=== PATIENT | male | born 1950 | race Caucasian/White ===

== ENCOUNTER 2019-09-17 11:35 | Emergency (ER) | payer MEDICARE, OTHER ==
[~2019-09-17] VITALS: Ht 170.2 cm; Wt 95.2 kg
[2019-09-17 12:34] LABS: BASOPHILS ABSOLUTE AUTO 0.06 K/mm3 (0.00-0.23); BASOPHILS PERCENT AUTO 1 % (0-2); EOSINOPHILS ABSOLUTE AUTO 0.12 K/mm3 (0.00-0.68); EOSINOPHILS PERCENT AUTO 2 % (0-6); Hematocrit 46.6 % (37.0-53.0); Hemoglobin 15.5 g/dL (13.5-17.5); IMMATURE GRAN ABSOLUTE AUTO 0.03 K/mm3 (0.00-0.10); IMMATURE GRAN PERCENT AUTO 0 % (0-1); LYMPHOCYTES ABSOLUTE AUTO 2.09 K/mm3 (0.84-5.20); LYMPHOCYTES PERCENT AUTO 26 % (21-46); MONOCYTES ABSOLUTE AUTO 1.09 K/mm3 (0.16-1.47); MONOCYTES PERCENT AUTO 14 % (4-13); Mean Corpuscular HGB 29.6 pg (26.0-34.0); Mean Corpuscular HGB Conc 33.3 g/dL (31.5-36.5); Mean Corpuscular Volume 89 fL (80-100); Mean Platelet Volume 9.1 fL (9.1-12.4); NEUTROPHILS ABSOLUTE AUTO 4.54 K/mm3 (1.96-9.15); NEUTROPHILS PERCENT AUTO 57 % (41-73); Platelet Count 251 K/mm3 (150-400); RDW Coefficient Variation 11.9 % (11.7-14.2); RDW Standard Deviation 38.3 fL (35.1-46.3); Red Blood Cell Count 5.24 M/mm3 (4.30-5.90); White Blood Cell Count 7.93 K/mm3 (4.00-11.30)
[2019-09-17 12:56] LABS: Alanine Aminotransfer (ALT/SGP 25 U/L (12-78); Albumin/Globulin Ratio 0.9 (0.8-1.8); Alk Phos 117 U/L (50-136); Anion Gap 8 mmol/L (6-16); Aspartate Aminotrans (AST/SGOT 21 U/L (12-37); Bilirubin, Total 0.6 mg/dL (0.1-1.0); Blood Urea Nitrogen 22 mg/dL (8-24); Bun/Creatinine Ratio 26.8 (12.0-20.0); CO2, Blood 28 mmol/L (21-32); Calcium, Blood 9.1 mg/dL (8.5-10.1); Chloride, Blood 101 mmol/L (98-108); Creatinine, Blood 0.82 mg/dL (0.60-1.20); Globulin, Blood 4.5 g/dL (2.2-4.0); Glomerular Filtration Rate >60 (60-); Glucose, Blood 189 mg/dL (70-99); Sodium, Blood 137 mmol/L (136-145); Total Protein, Blood 8.5 g/dL (6.4-8.2); Troponin I <0.015 ng/mL (0.000-0.040)
[2019-09-17] MEDS ORDERED: ALBU90OI INH (14:34)
[2019-09-17] MEDS ORDERED: Prednisone20 MG PO (14:34)
== END 2019-09-17 14:55 | disposition home or self-care (01) ==
LOC: ER 11:35
PROVIDERS: Physician Assistant
DX: J44.1 Chronic obstructive pulmonary disease with (acute) exacerbation (principal); E11.9 Type 2 diabetes mellitus without complications
CPT/HCPCS: 71045; 80053; 84484; 85025; 93005; 93010; 94640; 94644; 96374; 99285-25; J2930

== ENCOUNTER 2019-10-22 13:04 | Inpatient (IN) | payer MEDICARE, OTHER ==
[~2019-10-22] VITALS: Ht 170.2 cm; Wt 96.4 kg
[~2019-10-22 13:04] MED LIST: ALBU90OI INH; Prednisone20 MG PO
[2019-10-22 14:47] LABS: BASOPHILS ABSOLUTE AUTO 0.03 K/mm3 (0.00-0.23); BASOPHILS PERCENT AUTO 0 % (0-2); EOSINOPHILS ABSOLUTE AUTO 0.13 K/mm3 (0.00-0.68); EOSINOPHILS PERCENT AUTO 2 % (0-6); Hematocrit 45.4 % (37.0-53.0); Hemoglobin 14.7 g/dL (13.5-17.5); IMMATURE GRAN ABSOLUTE AUTO 0.02 K/mm3 (0.00-0.10); IMMATURE GRAN PERCENT AUTO 0 % (0-1); LYMPHOCYTES ABSOLUTE AUTO 1.85 K/mm3 (0.84-5.20); LYMPHOCYTES PERCENT AUTO 25 % (21-46); MONOCYTES ABSOLUTE AUTO 0.85 K/mm3 (0.16-1.47); MONOCYTES PERCENT AUTO 12 % (4-13); Mean Corpuscular HGB 29.8 pg (26.0-34.0); Mean Corpuscular HGB Conc 32.4 g/dL (31.5-36.5); Mean Corpuscular Volume 92 fL (80-100); Mean Platelet Volume 8.9 fL (9.1-12.4); NEUTROPHILS PERCENT AUTO 61 % (41-73); Platelet Count 273 K/mm3 (150-400); RDW Coefficient Variation 12.1 % (11.7-14.2); RDW Standard Deviation 40.6 fL (35.1-46.3); Red Blood Cell Count 4.94 M/mm3 (4.30-5.90); White Blood Cell Count 7.38 K/mm3 (4.00-11.30)
[2019-10-22] MEDS ORDERED: INSULANPEN SC (14:50)
[2019-10-22 15:02] LABS: International Normalized Ratio 0.96; Prothrombin Time Results 10.2 Sec (9.7-11.5)
[2019-10-22 15:07] LABS: Alanine Aminotransfer (ALT/SGP 23 U/L (12-78); Albumin, Blood 3.5 g/dL (3.4-5.0); Albumin/Globulin Ratio 0.8 (0.8-1.8); Alk Phos 98 U/L (50-136); Anion Gap 2 mmol/L (6-16); Aspartate Aminotrans (AST/SGOT 15 U/L (12-37); Bilirubin, Total 0.4 mg/dL (0.1-1.0); Blood Urea Nitrogen 16 mg/dL (8-24); Bun/Creatinine Ratio 19.2 (12.0-20.0); CO2, Blood 33 mmol/L (21-32); Calcium, Blood 8.8 mg/dL (8.5-10.1); Chloride, Blood 102 mmol/L (98-108); Creatinine, Blood 0.83 mg/dL (0.60-1.20); Globulin, Blood 4.3 g/dL (2.2-4.0); Glomerular Filtration Rate >60 (60-); Glucose, Blood 308 mg/dL (70-99); Potassium, Blood 3.9 mmol/L (3.5-5.5); Sodium, Blood 137 mmol/L (136-145); Total Protein, Blood 7.8 g/dL (6.4-8.2)
[2019-10-22] MEDS ORDERED: BIKTARVY 50-201 EACH PO (15:11)
[2019-10-22] MEDS ORDERED: FLUT1DIS2 INH (15:11)
[2019-10-22] MEDS ORDERED: ATORVASTATIN CA20 MG PO (15:12)
[2019-10-22] MEDS ORDERED: PLAVIX75 MG PO (15:12)
[2019-10-22] MEDS ORDERED: Ventolin/Prove6.7 GM INH (15:13)
[2019-10-22] MEDS ORDERED: INSULIN ASPART PROTAMINE SC (15:15)
[2019-10-22] MEDS ORDERED: INSULIN ASPART SC (15:15)
[2019-10-22 15:42] LABS: Source, Urine Voided
[2019-10-22 15:45] LABS: Appearance, Urine Clear (Clear); Bilirubin, Urine Neg (Neg); Blood, Urine Neg (Neg); Color, Urine Yellow (P-Yellow); Glucose Qualitative, Urine 4+ (Neg); Ketones, Urine Neg (Neg); Leukocyte Esterase, Urine Neg (Neg); Nitrite, Urine Neg (Neg); Protein, Urine Neg (Neg); Specific Gravity, Urine 1.015 (1.003-1.022); Urobilinogen, Urine NORM (Normal)
[2019-10-22 17:34] LABS: CHOL/HDL RATIO 4.2; Cholesterol 161 mg/dL (50-200); HDL Cholesterol 38 mg/dL (>39); LDL/HDL RATIO 2.2; Low Density Lipoprotein Chol 84 mg/dL (0-110); Triglycerides 193 mg/dL (30-160); Very Low Density Lipoprot Chol 38 mg/dL (6-32)
--- NOTE | 2019-10-23 00:31 | NUR ---
10/22/191944 PT SITTING ON SIDE OF BED AND REFUSED TO LAY DOWN PER RN REQUEST. PT HAS LEFT SIDE DEFICIT AND INSTRUCTED THAT STAFF WANT HIM TO BE SAFE WHEN WE ARE NOT IN ROOM. STILL REFUSED TO LAY DOWN. COAT EXAMINERPAGE INFORMED AND SPOKE WITH PT ABOUT STAFF CONCERNS. HE EVENTUALLY DID LAY DOWN WITH HEAD ELEVATED. BED ALARM ON. SEE ADMISSION FORMS. COAT EXAMINER WILL ATTEMPT NEW IV IF PT WILL ALLOW.
--- NOTE | 2019-10-23 00:38 | NUR ---
10/22/19 1138 HVAC TECHNICIAN RESIDENTIALPAGE ATTEMPTED IV INSERTION WITH ULTRASOUND BUT WAS UNABLE AFTER SEVERAL ATTEMPTS. PT REFUSED ANY FURTHER ATTEMPTS FOR NOW. STAFF WILL TRY AGAIN IN AM.
--- NOTE | 2019-10-23 00:41 | NUR ---
10/22/19 2300 PT MORE COOPERATIVE WITH MEDS AND CARE. CONFUSED WHEN FIRST AWAKENED FOR RESP. CARE AND TX. CONT. PULSE OXIMETER APPLIED. DENIES ANY PAIN OR DISTRESS AT THIS TIME. LEFT SIDE DEFICIT PRESENT ON ADMISSION. SHAW AT SIZE 4. TAKING JUICE AND WATCHING TV. BED AL;ARM ON AND REMINDED PT TO CALL STAFF FOR NEEDS INCLUDING GETTING UP. HE STATES HE WILL CALL.
--- NOTE | 2019-10-23 05:11 | NUR ---
10/23/19 9029 PAGED PALLIATIVE CARE ABOUT CONSULT VIA [facility] PAGER.
--- NOTE | 2019-10-23 06:42 | NUR ---
10/23/19 0600 PT SLEEPING AND HAD REFUSED LAB DRAWS EARLIER. HE AGREED TO HAVE THEM DONE AFTER 6 AM. VITALS STABLE. SLEEPING WELL THE LATER HALF OF FERMENTATION ENGINEER.
--- NOTE | 2019-10-23 12:00 | NUR ---
ASSUMED CARE OF PATIENT FROM Elgin BRUNER AFTER I FINISHED WORKPLACE VIOLENCE CLASS. PT. UP IN CHAIR LUNCH TRAY IN FRONT OF PT. PT. REQUESTING BACK TO BED. WENT TO GET SOMEONE TO ASSIST ME AND WHEN I RETURNED TO ROOM HE HAD TRANSFERRED HIMSELF TO EDGE OF BED. INSTRUCTED PT. NOT TO GET UP WITHOUT HELP WE DIDN'T WANT HIM TO FALL. PY. SAID HE WOULD CALL.
--- NOTE | 2019-10-23 14:36 | NUR ---
Echocardiogram completed.
--- NOTE | 2019-10-23 18:35 | NUR ---
PT. LYING QUIETLY AFTER HAVING DINNER. PT. CAREGIVERS FINALLY BROUGHT IN HIS HOME MED AND THEY WERE GIVEN THIS EVENING. PT. DOES NOT HAVE AN IV HE REFUSED THEM. SS ARE TALKING SNF BUT OF THIS TIME HE IS REFUSING TO GO THERE. WANTS TO RETURN BACK TO WHERE HE WAS STAYING AT [facility]. NO NOTEABLE CHANGES THIS SHIFT.
--- NOTE | 2019-10-24 07:25 | NUR ---
SHIFT SUMMARY PT IS A 69 Y/O MALE, ADMITTED FOR AN ACUTE CVA. HE IS A&O X 4, AND A 1PA UP. PT IS VERY UNCOOPERATIVE WITH CARE AT TIMES. HE REFUSED VITALS AND CHEMBG CHECK AT THE START OF SHIFT, AND TRIED TO LEAVE AMA. AFTER SPEAKING WITH THE HOSPITALIST JAKE BURGOS AND CHARGE NURSE, PT AGREED TO STAY THE NIGHT. HE ALSO AGREED TO VITALS AND MEDICATIONS, AND SLEPT WELL THROUGH THE NIGHT AFTER RECEIVING BEDTIME MEDS. NO COMPLAINTS OF ACUTE PAIN, NAUSEA OR SOB. VITAL SIGNS STABLE. NO ACUTE CHANGES IN PT CONDITION NOTED. REPORT GIVEN TO ONCOMING RN.
--- NOTE | 2019-10-24 17:24 | NUR ---
SHIFT SUMMARY- PT A/O, COOOPERATIVE. PT STILL HAVING LEFT SIDED WEAKNESS. PT WANTED TO LEAVE AMA DRUING THIS SHIFT, WAS ABLE TO CONVINCE THE PT TO STAY BUT HE WANTED TO GO OUT TO SMOKE. PROVIDED A WHEEL CHAIR FOR HIM TO GO OUTSIDE. AWAITING PLACMENT.
--- NOTE | 2019-10-24 17:25 | NUR ---
Spiritual Care inital note: Mr. Rivera is non-sikh, but he did appear to enjoy companionship and conversation. He tells me he feels he is well enough to leave the hospital. He disagress with SNF recommendation. He is homeless and perfers "being outside." "I am uncomfortable indoors." He speech is somewhat slurred. He denies concerns or worry and states he is not in pain. Mr. Rivera is pleasant and smiles easily. I encouraged him to allow staff to help him get stronger. I will remain available.
--- NOTE | 2019-10-25 07:18 | NUR ---
SHIFT SUMMARY PT IS A 69 Y/O MALE, ADMITTED FOR AN ACUTE CVA. HE IS A&O X 4, AND A 1PA IN THE ROOM. PT HAS RESIDUAL L SIDE WEAKNESS R/T HIS CVA. NO COMPLAINTS OF PAIN, NAUSEA OR SOB. VITAL SIGNS STABLE. PT SLEPT WELL THROUGH THE NIGHT. NO OTHER ACUTE CHANGES IN PT CONDITION NOTED DURING THE NIGHT. REPORT GIVEN TO ONCOMING RN.
[2019-10-25] MEDS ORDERED: CEPH500 PO (14:59)
[2019-10-25] MEDS ORDERED: NOVOLOG FL100 UNIT/1 SC (14:59)
--- NOTE | 2019-10-25 15:08 | NUR ---
DISCHARGE INSTRUCTIONS GIVEN TO PATIENT. ALL QUESTIONS ANSWERED. INSULIN AND SYRINGES RETURNED TO THE PATIENT. AWAITING FOR TRANSPORT AT THIS TIME.
--- NOTE | 2019-10-25 16:01 | NUR ---
PATIENT BECAME VERY IMPATIENT AND DECIDED THAT HE WAS NOT WAITING FOR TRANSPORTATION ANY LONGER. HE GRABBED HIS LUGGAGE AND BEGAN WALKING VERY UNSTEADILY DOWN THE CONNOR TO LEAVE. STAFF MEMBERS STOPPED HIM AND REQUESTED THAT HE BE TRANSFERED OUT OF THE FACILITY IN A WHEELCHAIR. THE PATIENT DID GET INTO THE WHEELCHAIR, HOWEVER, EVEN THOUGH HE WAS TOLD HE CAN KEEP THE WHEELCHAIR HE STATED HE WOULD NOT TAKE IT BECAUSE IT IS "TOO MUCH LUGGAGE". THE PATIENT LEFT AT 1559.
== END 2019-10-25 15:58 | disposition home or self-care (01) | DRG 65 ==
LOC: ER 13:04 → MEDS 16:44
PROVIDERS: Emergency Medicine; ADMIT Internal Medicine
DX: I63.9 Cerebral infarction, unspecified (principal); L03.115 Cellulitis of right lower limb; G81.94 Hemiplegia, unspecified affecting left nondominant side; J44.9 Chronic obstructive pulmonary disease, unspecified; E11.9 Type 2 diabetes mellitus without complications; Z21 Asymptomatic human immunodeficiency virus [HIV] infection status; R47.81 Slurred speech; F17.210 Nicotine dependence, cigarettes, uncomplicated; Z66 Do not resuscitate; Z79.4 Long term (current) use of insulin; Z79.02 Long term (current) use of antithrombotics/antiplatelets
CPT/HCPCS: 36415; 70450; 71045; 76882; 80053; 80061; 81003; 82947; 84443; 85025; 85610; 85730; 92526; 92610; 93005; 93010; 93306; 93880; 94640; 94760; 94762; 97110; 97112; 97162; 97166; 97530; 97535; 99285-25; A9270-GY; J1650

== ENCOUNTER 2022-11-24 12:23 | Emergency (ER) | payer MEDICARE, OTHER ==
[~2022-11-24] VITALS: Ht 170.2 cm; Wt 95.2 kg
[~2022-11-24 12:23] MED LIST changes: +ATORVASTATIN CA20 MG PO; +BIKTARVY 50-201 EACH PO; +CEPH500 PO; +FLUT1DIS2 INH; +INSULANPEN SC; +INSULIN ASPART PROTAMINE SC; +INSULIN ASPART SC; +NOVOLOG FL100 UNIT/1 SC; +PLAVIX75 MG PO; +Ventolin/Prove6.7 GM INH
[2022-11-24 13:36] LABS: Influenza A, PCR NEGATIVE (NEGATIVE); Influenza B, PCR NEGATIVE (NEGATIVE); Resp Syncytial Virus, PCR NEGATIVE (NEGATIVE); SARS-Cov-2 (COVID-19) PCR, MMC NEGATIVE (NEGATIVE)
[2022-11-24] MEDS ORDERED: PRED20 PO (14:21)
== END 2022-11-24 14:21 | disposition home or self-care (01) ==
LOC: ER 12:23
PROVIDERS: Physician Assistant
DX: J20.9 Acute bronchitis, unspecified (principal); J44.0 Chronic obstructive pulmonary disease with (acute) lower respiratory infection; E11.9 Type 2 diabetes mellitus without complications; B20 Human immunodeficiency virus [HIV] disease; Z79.4 Long term (current) use of insulin; Z20.822 Contact with and (suspected) exposure to COVID-19; Z88.8 Allergy status to other drugs, medicaments and biological substances; Z79.899 Other long term (current) drug therapy
CPT/HCPCS: 0241U; 71046

== ENCOUNTER 2022-12-09 08:59 | Inpatient (IN) | payer MEDICARE, OTHER ==
[~2022-12-09] VITALS: Ht 170.2 cm; Wt 90.0 kg
[~2022-12-09 08:59] MED LIST changes: +PRED20 PO
[2022-12-09 10:04] LABS: BASOPHILS ABSOLUTE AUTO 0.06 K/mm3 (0.00-0.23); BASOPHILS PERCENT AUTO 0 % (0-2); EOSINOPHILS ABSOLUTE AUTO 0.11 K/mm3 (0.00-0.68); EOSINOPHILS PERCENT AUTO 1 % (0-6); Hemoglobin 15.8 g/dL (13.5-17.5); IMMATURE GRAN ABSOLUTE AUTO 0.04 K/mm3 (0.00-0.10); IMMATURE GRAN PERCENT AUTO 0 % (0-1); LYMPHOCYTES ABSOLUTE AUTO 2.72 K/mm3 (0.84-5.20); LYMPHOCYTES PERCENT AUTO 19 % (21-46); MONOCYTES PERCENT AUTO 9 % (4-13); Mean Corpuscular HGB 29.4 pg (26.0-34.0); Mean Corpuscular HGB Conc 33.6 g/dL (31.5-36.5); Mean Corpuscular Volume 87 fL (80-100); Mean Platelet Volume 9.4 fL (9.1-12.4); NEUTROPHILS ABSOLUTE AUTO 10.08 K/mm3 (1.96-9.15); NEUTROPHILS PERCENT AUTO 70 % (41-73); Platelet Count 268 K/mm3 (150-400); RDW Coefficient Variation 12.1 % (11.7-14.2); RDW Standard Deviation 38.5 fL (35.1-46.3); Red Blood Cell Count 5.38 M/mm3 (4.30-5.90); White Blood Cell Count 14.31 K/mm3 (4.00-11.30)
[2022-12-09 10:20] LABS: Albumin, Blood 3.4 g/dL (3.4-5.0); Albumin/Globulin Ratio 0.8 (0.8-1.8); Bilirubin, Total 0.8 mg/dL (0.1-1.0); Bun/Creatinine Ratio 23.1 (12.0-20.0); Calcium, Blood 9.1 mg/dL (8.5-10.1); Creatinine, Blood 0.69 mg/dL (0.60-1.20); Globulin, Blood 4.2 g/dL (2.2-4.0); Potassium, Blood 3.9 mmol/L (3.5-5.5); Total Protein, Blood 7.6 g/dL (6.4-8.2)
[2022-12-09 11:08] LABS: Influenza A, PCR NEGATIVE (NEGATIVE); Influenza B, PCR NEGATIVE (NEGATIVE); Resp Syncytial Virus, PCR NEGATIVE (NEGATIVE); SARS-Cov-2 (COVID-19) PCR, MMC NEGATIVE (NEGATIVE)
[2022-12-09] MEDS ORDERED: Biktarvy 50-200-25 M PO (14:05)
--- NOTE | 2022-12-09 16:42 | NUR ---
ADMIT/SHIFT SUMMARY PATIENT ADMITTED FROM ER AT 1600. PATIENT SETTLED INTO ROOM. PATIENT ORIENTED TO CALL LIGHT USE AND TV CONTROL. PATIENT STATED TO THIS RN AND POWERHOUSE HELPER THAT HE WOULD NOT USE THE CALL LIGHT. PATIENT GIVEN EXTENSIVE EDUCATION ON NEED FOR CALL LIGHT USE. PATIENT STATED UNDERSTANDING. ALARMS ON FOR SAFETY. PATIENT DENIES PAIN, NAUSEA, AND SHORTNESS OF BREATH. PATIENT IS A 1P WITH FWW, WHEN PATIENT WILL USE. PATIENT IS VERY UNSTEADY ON HIS FEET. PATIENT IS A&O X4, BUT SLOW TO RESPOND AND HAS SOME SLURRED SPEECH. PATIENT HAS HX OF CVA AND STATES HIS SPEECH IS NORMAL. PATIENT HAS HACKING COUGH THAT PRODUCES THICK SPUTUM. PATIENT SATURATING WELL ON ROOM AIR. PATIENT IS EATING AND DRINKING WELL. PATIENT IS PLEASANT AND COOPERATIVE WITH CARE.
[2022-12-09 18:03] LABS: Adenovirus Not Detected (NOT DETECT); Bordetella pertussis Not Detected (NOT DETECT); Chlamydophila pneumoniae Not Detected (NOT DETECT); Coronavirus 229E Not Detected (NOT DETECT); Coronavirus HKU1 Not Detected (NOT DETECT); Coronavirus NL63 Not Detected (NOT DETECT); Coronavirus OC43 Not Detected (NOT DETECT); Human Metapneumovirus Not Detected (NOT DETECT); Human Rhinovirus/Enterovirus Detected (NOT DETECT); Influenza A/2009-H1 Not Detected (NOT DETECT); Influenza A/H1 Not Detected (NOT DETECT); Influenza A/H3 Not Detected (NOT DETECT); Influenza B Not Detected (NOT DETECT); Mycoplasma pneumoniae Not Detected (NOT DETECT); Parainfluenza Virus 1 Not Detected (NOT DETECT); Parainfluenza Virus 2 Not Detected (NOT DETECT); Parainfluenza Virus 3 Not Detected (NOT DETECT); Parainfluenza Virus 4 Not Detected (NOT DETECT); Respiratory Syncytial Virus Not Detected (NOT DETECT); SARS-Cov-2 (COVID-19), BioFire Not Detected (NOT DETECT)
--- NOTE | 2022-12-09 18:37 | NUR ---
UPDATE PER PATIENT WOOD DIE MAKER, THEY ARE PAYING FOR PATIENT TO STAY IN [place] UNTIL WEDNESDAY 12/13, THEY ARE TRYING TO GET IT EXTENDED UNTIL THEY CAN FIND HOUSING FOR PATIENT. THEY STATED THEY ARE WORKING WITH [facility]. THEY ALSO STATED PATIENTS INSURANCE HAS BEEN SWITCHED TO [facility], EFFECTIVE 12/14/22. OUTREACH CONTACT IS RUBIN, .
[2022-12-09 21:56] LABS: Glucose, Blood 705 mg/dL (70-99)
--- NOTE | 2022-12-10 00:45 | NUR ---
PT GLUCOSE >500 AT 2100 CHECK, PROVIDER CALLED ORDERS PLACED, RECHECK AT 2300 GLUCOSE 487, PROVIDER NOTIFIED AND ORDERS PLACED WILL CONTINUE TO MONITOR
[2022-12-10 06:01] LABS: Hematocrit 42.6 % (37.0-53.0); Hemoglobin 14.5 g/dL (13.5-17.5); Mean Corpuscular HGB 29.3 pg (26.0-34.0); Mean Corpuscular Volume 86 fL (80-100); Platelet Count 260 K/mm3 (150-400); RDW Coefficient Variation 11.9 % (11.7-14.2); RDW Standard Deviation 37.5 fL (35.1-46.3); Red Blood Cell Count 4.95 M/mm3 (4.30-5.90); White Blood Cell Count 13.78 K/mm3 (4.00-11.30)
[2022-12-10 06:22] LABS: Bun/Creatinine Ratio 33.6 (12.0-20.0); Calcium, Blood 9.1 mg/dL (8.5-10.1); Creatinine, Blood 0.65 mg/dL (0.60-1.20); Potassium, Blood 3.7 mmol/L (3.5-5.5)
[2022-12-10 15:34] LABS: % CD 4 POS. LYMPH. 12.3 % (30.8-58.5); ABSOLUTE CD 4 HELPER 62 /uL (359-1519); BASOS 0 % (Not Estab.); EOS 0 % (Not Estab.); HEMOGLOBIN 14.9 g/dL (13.0-17.7); IMMATURE GRANULOCYTES 0 % (Not Estab.); LYMPHS 3 % (Not Estab.); LYMPHS (ABSOLUTE) 0.5 x10E3/uL (0.7-3.1); MCH 29.7 pg (26.6-33.0); MCHC 33.1 g/dL (31.5-35.7); MCV 90 fL (79-97); MONOCYTES 2 % (Not Estab.); MONOCYTES(ABSOLUTE) 0.2 x10E3/uL (0.1-0.9); NEUTROPHILS 95 % (Not Estab.); NEUTROPHILS (ABSOLUTE) 12.7 x10E3/uL (1.4-7.0); PLATELETS 257 x10E3/uL (150-450); RBC 5.02 x10E6/uL (4.14-5.80); RDW 12.1 % (11.6-15.4); WBC 13.4 x10E3/uL (3.4-10.8)
--- NOTE | 2022-12-10 17:03 | NUR ---
PATIENT A/OX4, UP WITH FWW AND 1 ASSIST. FALL PRECAUTIONS IN PLACE. PATIENT OVERESTIMATES ABILITY AT TIMES. TOLERATING ADA DIET. ACHS BLOOD SUGARS, COVERAGE PER HIGH SLIDING SCALE. SKIN INTACT. LUNGS WITH WHEEZES THROUGHOUT. VSS, ON RA. WANTING COCKTAIL SERVER PLACEMENT AT DISCHARGE. NO NEW CONCERNS THIS SHIFT.
--- NOTE | 2022-12-11 05:26 | NUR ---
PT IS A&04, SB ASSIST, VSS, COUGHING UP THICK GREEN SPUTUM, RA, NO COMPLAINTS OF PAIN OR ACUTE OVERNIGHT EVENTS CONTINUE POC
--- NOTE | 2022-12-11 18:00 | NUR ---
PATIENT A/OX4, UP WITH FWW, GB AND 2 ASSIST. GAIT VERY UNSTEADY AND UNCOORDINATED. HEAD CT ORDERED FOR AM DUE TO WEAKNESS AND RECENT CHANGE IN GAIT. VSS, ON RA. LUNGS WITH WHEEZES THROUGHOUT, COUGHING UP MODERATE AMOUNT OF THICK YELLOW SPUTUM. ACHS BLOOD SUGARS, SEMGLEE INCREASED TODAY. USING CALL LIGHT APPROPRIATELY FOR ASSISTANCE. DESIRE FROM [facility] IN TO VISIT PATIENT AND STATED THAT AT BASELINE PATIENT IS AMBULATORY AND WALKS LONG DISTANCES THROUGHOUT TOWN AND HAS A NORMAL GAIT. SHE ALSO SAID THAT THE [facility] WAS WORKING ON GETTING PATIENT INTO AN INDEPENDENT LIVING SITUATION. PT EVALUATED PATIENT TODAY AND RECOMMENDED SNF OR HOME HEALTH WITH 24 HOUR SUPERVISION.
--- NOTE | 2022-12-12 11:11 | NUR ---
[facility] CALL RECEIVED FROM SILVA MARSHALL. SHE REPORTED THAT [facility] HAS BEEN FOLLOWING THIS PATIENT FOR YEARS AND WANTED TO INFORM THAT PATIENT HAS HAD MULTIPLE POSITIVE SYPHILLIS TEST RESULTS, MOST RECENT BEING ON MAY 24, 2022 AT [facility]. SHE STATED [facility] HAS TRIED TO GET PROVIERS TO DO A NEUROLOGICAL SYPHILLIS WORK UP DUE TO PATIENT'S RECENT WEAKNESS AND MENTATION CHANGES. NOTIFIED DR LINK.
[2022-12-12 12:20] LABS: International Normalized Ratio 1.03; Prothrombin Time Results 10.8 Sec (9.7-11.5)
--- NOTE | 2022-12-12 17:53 | NUR ---
SHIFT SUMMARY A&0X4. EXPIRATORY WHEEZES NOTES TO UPPER BILATERAL LOBES. PRODUCTIVE COUGH NOTED, SPUTUM YELLOW/GREEN. 02 SATS REMAINED IN THE LOW 90'S. OT WORKED WITH PT AND NOTED GENERALIZED WEAKNESS, POOR BALANCE, AND 2 PER ASSIST WITH GB/FWW. [facility] CALLED AND INFORMED ABOUT PT'S HISTORY OF MULTIPLE POSITIVE SYPHILLIS TESTS AND NOTED THAT THEY HAVE BEEN TRYING TO GET A PROVIDER TO FOLLOW UP WITH NEUROLOGICAL SYPHILLIS TESTING DUE TO RECENT MENTATION CHANGES AND WEAKNESS. NIKOLAY HAS ORDERED CSF TESTING THAT CANNOT TAKE PLACE FOR 5-7 DAYS WITH PT TAKING NORVASC. PATIENT ATTEMPTED TO LEAVE AMA EARLIER IN THE SHIFT BUT DECIDED TO STAY FOR NOW TO WAIT FOR THE LB PROCEDURE. PATIENT RECEIVED TESSALON PEARLS AND GUAIFENESIN/CODEINE FOR COUGH. PATIENT CURRENTLY EATING DINNER ON SIDE OF BED. CALL LIGHT IN REACH.
--- NOTE | 2022-12-13 05:20 | NUR ---
PT IS A&O4, UP WITH 2 AND A WALKER, RA, VSS, NO COMPLAINTS OF PAIN OR DISCOMFORT OVERNIGHT, CONTINUE POC
--- NOTE | 2022-12-13 17:15 | NUR ---
SHIFT SUMMARY A&OX4, COOPERATIVE WITH CARE. PT PLACED ON 3L 02 BY RT DUE TO 89% SAT DURING EXERTION BUT TAKEN OFF PER PATIENT REQUEST A FEW HOURS LATER. LUNG SOUNDS DIMINISHED WITH INSPIRATORY WHEEZES IN THE BASES. CONTINUES TO HAVE A PRODUCTIVE COUGH, TREATED WITH TESSALON PEARLS AND GUAIFENESIN/CODEINE. 2PER TRANSFER WITH GAIT BELT. BLOOD SUGARS TRENDED HIGHER T/O THE SHIFT, LAST LEVEL 395. YENYIO NOTIFIED, NO NEW ORDERS. DENIED PAIN "MORE THAN HE CAN HANDLE." NO ACUTE CHANGES DURING THIS SHIFT. PATIENT CURRENTLY SITTING IN RECLINING EATING DINNER. CALL LIGHT WITHIN REACH.
--- NOTE | 2022-12-14 04:41 | NUR ---
PT IS A&O4, UP WITH 2 AND A WALKER, PRN COUGH MEDICINE GIVEN PER MAR, PT CONTINUES TO COUGH UP THICK YELLOW SPUTUM, VSS, ON RA, NO COMPLAINTS OF PAIN, CONTINUE POC
--- NOTE | 2022-12-14 14:36 | NUR ---
Pt is alert, pleasant. He is slightly INUPIAT, and tells me as soon as I introduce myself that he would like to go outside, and asks that we "continuous pickling line pickler the conversation if we can take a walk. I agree to to this.
--- NOTE | 2022-12-14 18:31 | NUR ---
NO ACUTE CHANGES THIS SHIFT. PATIENT WORKING WITH PT/OT, ABLE TO USE A SLIDER BOARD TO TRANSFER TO W/C. RA TO 2LO2 TO MAINTAIN SATS. HARSH NONPRODUCTIVE COUGH, SPUTUM SAMPLE SENT. PATIENT SEITCHED BACK FROM PO STEROIDS TO IV TODAY. ACHS BLOOD SUGARS, GLUCOSE 447 AT DINNER AND LONG ACTING WAS INCREASED. VSS THIS SHIFT. POWERGLIDE TO BRITTANY WNL AND SL. PATIENT COOPERATIVE WITH CARE, CALLING APPROPRIATELY FOR ASSISTANCE.
--- NOTE | 2022-12-15 05:42 | NUR ---
A/OX4; CALM AND COOPERATIVE. HARSH CONGESTED COUGH. EXP WHEEZE. PRNS GIVEN; GOOD RELIEF PER PATIENT. 2X MAX ASSIST PIVOT WITH GAITBELT AND WALKER. PROVIDER NOTIFIED THIS SHIFT REGARDING BLOOD GLUCOSE OF 477; NO NEW ORDERS (LONG ACTING INSULIN DOSE ALREADY ADJUSTED FOR TONIGHT BY DAY MD). SLEEP PROMOTED. CALL LIGHT IN REACH; ENCOURAGED TO MAKE NEEDS KNOWN. BED ALARM SET.
--- NOTE | 2022-12-15 16:59 | NUR ---
PATIENT A/OX4, UP WITH 2 PERSON PIVOT TRANSFER. LUNGS WITH WHEEZES THROUGHOUT, COUGHING UP LARGE AMOUNT OF GREEN SPUTUM. VSS, 2LO2 TO MAINTAIN SATS. WORKED WITH PT/OT TODAY. AWAITING LUMBAR PUNCTURE ON MONDAY. ACHS BLOOD SUGARS, SEMGLEE INCREASED TODAY AND COVERAGE PER SS WITH MEALS. POWERGLIDE TO BRITTANY WNL AND SL. PLEASANT AND COOPERATIVE WITH CARE. NO NEW CONCERNS THIS SHIFT.
[2022-12-16 10:35] LABS: Bun/Creatinine Ratio 35.9 (12.0-20.0); Calcium, Blood 9.6 mg/dL (8.5-10.1); Creatinine, Blood 0.7 mg/dL (0.60-1.20); Potassium, Blood 4.2 mmol/L (3.5-5.5)
--- NOTE | 2022-12-16 17:42 | NUR ---
SHIFT SUMMARY: NO ACUTE EVENTS. C/O CHRONIC PAIN BUT DECLINED OFFERED PAIN MEDS. ON O2 @ 2 L/MIN NC, PROD COUGH WITH GREEN SPUTUM, COARSE LUNG SOUNDS. CAN BE IRRITABLE AT TIMES. HR IRREGULAR, DEPENDENT EDEMA IN BLE. USING URINAL INDEPENDENTLY. TWO PERSON MAX ASSIST TO CHAIR, GAIT WOBBLY, ALARMS IN PLACE, CALLS APPROPRIATELY. GOOD APPETITE, TOLERATING PO INTAKE.
[2022-12-17 05:04] LABS: Hematocrit 46.5 % (37.0-53.0); Hemoglobin 15.5 g/dL (13.5-17.5); Mean Corpuscular HGB 29.1 pg (26.0-34.0); Mean Corpuscular HGB Conc 33.3 g/dL (31.5-36.5); Mean Corpuscular Volume 87 fL (80-100); Mean Platelet Volume 9.2 fL (9.1-12.4); Platelet Count 365 K/mm3 (150-400); RDW Coefficient Variation 11.9 % (11.7-14.2); RDW Standard Deviation 38.4 fL (35.1-46.3); Red Blood Cell Count 5.33 M/mm3 (4.30-5.90); White Blood Cell Count 12.62 K/mm3 (4.00-11.30)
[2022-12-17 05:20] LABS: Bun/Creatinine Ratio 39.6 (12.0-20.0); Calcium, Blood 8.9 mg/dL (8.5-10.1); Creatinine, Blood 0.63 mg/dL (0.60-1.20); Potassium, Blood 4.3 mmol/L (3.5-5.5)
--- NOTE | 2022-12-17 07:15 | NUR ---
JUSTIN SLEPT WELL THROUGH THE NIGHT WAKING ONLY TO USE THE URINAL WHICH HE DID SEVERAL TIMES. (PLEASE SEE OVERNIGHT URINE OUTPUT). NO COMPLAINTS OF PAIN OR DISCOMFORT. STILL VERY UNCOMFORTABLE WITH MALE NURSING STAFF. LOOSE SOUNDING NON PRODUCTIVE COUGH DOES PRODUCE ANTERIOR CHEST PRESSURE IF NOT RELIEVED. MAXIM WITH CODIENE COUGH SYRUP SEEMED TO DO THE TRICK.
--- NOTE | 2022-12-17 19:55 | NUR ---
SHIFT SUMMARY- PT ALERT AND ORIENTED, HE IS IMPULSIVE AND WILL GET UP WITH OUT ASSISTANCE. PT TOLD THIS RN THAT IF STAFF SET THE BED ALARM HE WILL TURN IT OFF BEFORE HE GETS UP. PT INSISTED ON HIS DOOR BEING CLOSED. BECAUSE OF PAST TRAUMA THE PT STATES HE CAN NOT HAVE MALE STAFF ATTENDING HIM. SPOKE TO THE PT ABOUT SAFETY AND HE STATES HE WILL USE THE CALL LIGHT. EXPLAINED TO USE THE PAIN MED BUTTON IF HE HAS NOT GOTTEN HELP USING THE TRAIN CONTROL TECHNICIAN CALL BUTTON. THE PT ACKNOWLEDGED UNDERSTANDING OF THIS, HOWEVER DID NOT USE THE PAIN MED CALL BUTTON. SUGESTED TO JOURNEYMAN MACHINIST THE PT BE TRANSFERED TO ANOTHER ROOM ON THE FLOOR THAT IS MORE CENTRALLY LOCATED. PT WILL BE TRANSFERED ON ANODISER. BEDSIDE REPORT COMPLETED WITH NIGHT RN. NO S&S OF DISTRESS AT THE TIME OF BEDSIDE REPORT.
--- NOTE | 2022-12-18 07:13 | NUR ---
JUSTIN ACTUALLY DID MUCH BETTER LAST NIGHT HAVING MOVED TO A QUIETER HALLWAY. HE DID RECEIVE COUGH MEDICINE TWICE THROUGHOUT THE SHIFT, AND ALSO FELT MUCH BETTER AFTER HE LAYED DOWN ON HIS SIDE INSTEAD OF FLAT ON HIS BACK. REPORT TO ONCOMING RN INCLUDED PATIENT'S ANXIETY TOWARDS ANY MALE STAFF.
--- NOTE | 2022-12-18 13:03 | NUR ---
SHIFT REPORT PT RESTING QUIETLY AT START OF SHIFT, WOKE EASILY FOR CARE. SITTING UP TO EOB MOST OF THE DAY WHEN AWAKE. PER SHIFT REPORT, PT CAN BE IMPULSIVE AND DID NOT LIKE HAVING BED ALARM ON. HOWEVER, PT HAS BEEN VERY PLEASANT AND CO-OP WITH CARE AND WILLING TO USE CALL LT FOR NEEDS IF GETTING UP. DR ANDERSON IN TO SEE PT THIS AM AND DISCUSSED PLAN OF CARE. PT TO HAVE LP TOMORROW, PER REPORT. NO C/O PAIN, DENIED FURTHER NEEDS. CALL LT IN REACH.
[2022-12-19 09:58] LABS: International Normalized Ratio 1.06; Prothrombin Time Results 11.1 Sec (9.7-11.5)
--- NOTE | 2022-12-19 14:37 | NUR ---
PT AWAKE, SITTING UP TO EOB DURING SHIFT REPORT, DRINKING JUICE AND COFFEE. PT WAITING FOR LP PROCEDURE TO BE DONE TODAY. DR LINK IN TO SEE PT AND DISCUSS PLAN OF CARE. PT THEN DECIDING THAT HE DOES NOT WANT PROCEDURE TO BE DONE NOW. DR LINK ATTEMPTED TO EDU PT ON NEED FOR PROCEDURE, BUT PT STATED HE WAS NOT HAVING IT DONE. PT THEN WAITING FOR D/C ORDERS. GUEST SERVICE HOST REPORTED THAT SHE WAS WORKING ON INSURANCE AND PLACEMENT. PT UNABLE TO WALK SAFELY W/O A W/C. PT DOES NOT OWN A W/C AT THIS TIME. PT GOT HIMSELF DRESSED THIS AM AND THEN WAITED UNTIL THIS AFTERNOON BEFORE BECOMING AGITATED ABOUT NOT GETTING D/C'D. PT STATED THAT HE WAS LEAVING AMA. [facility]IF[facility] WELL DR LINK. NRS PRACTICE SPECIALIST OFFICE NOTIFIED OF PT GOING AMA. PT ATTEMPTED TO WALK OUT, BUT ONLY STUMBLED AGAINST THE TANG AND TABLES, NEARLY FALLING. PT ABLE TO SIT IN W/C SO HE COULD GO TO [place] AND GET MONEY FOR CAB. PT ABLE TO OBTAIN MONEY AND CALL CAB ON HIS OWN. PT LEAVING AT 1355
== END 2022-12-19 14:20 | disposition left against medical advice (07) | DRG 191 ==
LOC: ER 08:59 → MEDS 09:00 → ER 19:03 → MEDS 19:03 → NUR 19:03 → MEDS 19:04 → NUR 12-10 15:24 → MEDS 12-10 15:24 → NUR 12-10 15:24 → MEDS 12-10 15:25 → NUR 12-10 15:44 → MEDS 12-17 19:53
PROVIDERS: Internal Medicine; Nurse Practitioner Acute Care; Physician Assistant; Student in an Organized Health Care Education/Training Program; ADMIT Internal Medicine
DX: J44.1 Chronic obstructive pulmonary disease with (acute) exacerbation (principal); A52.3 Neurosyphilis, unspecified; E87.1 Hypo-osmolality and hyponatremia; Z20.822 Contact with and (suspected) exposure to COVID-19; Z21 Asymptomatic human immunodeficiency virus [HIV] infection status; E11.9 Type 2 diabetes mellitus without complications; I25.10 Atherosclerotic heart disease of native coronary artery without angina pectoris; I10 Essential (primary) hypertension; B97.4 Respiratory syncytial virus as the cause of diseases classified elsewhere; Z86.73 Personal history of transient ischemic attack (TIA), and cerebral infarction without residual deficits; Z98.41 Cataract extraction status, right eye; Z98.42 Cataract extraction status, left eye; Z90.89 Acquired absence of other organs; Z98.890 Other specified postprocedural states; Z88.8 Allergy status to other drugs, medicaments and biological substances; Z79.4 Long term (current) use of insulin; Z79.02 Long term (current) use of antithrombotics/antiplatelets; Z79.899 Other long term (current) drug therapy
CPT/HCPCS: 0202U; 0241U; 36415; 70450; 71046; 80048; 80053; 82947; 83605; 83880; 84484; 85025; 85027; 85610; 85730; 86361; 87070; 87186; 87205; 93005; 93010; 94640; 94644; 94664; 94760; 96365; 96366; 96375; 96376; 97110; 97112; 97116; 97162; 97166; 97530; 97535; 99285-25; A9270; C1751; G0378; J0456; J1650; J1815; J2405; J2930; J7050; J7512